=== PATIENT | male | born 1980 | race Two or more races ===

== ENCOUNTER 2021-05-07 19:32 | Inpatient (IN) | payer MEDICAID, OTHER ==
[~2021-05-07] VITALS: Ht 170.2 cm; Wt 78.0 kg
[2021-05-07 20:05] LABS: Basophils # (auto) 0.1 10 ^3/uL (0-0.2); Basophils % (auto) 0.9 % (0.0-2.0); Eosinophils # (auto) 0.1 10 ^3/uL (0-0.8); Eosinophils % (auto) 1.5 % (0.0-7.0); Hematocrit 39.9 % (41.0-53.0); Lymphocytes # (auto) 1.1 10 ^3/uL (0.4-5.4); Mean Corpuscular Hemoglobin 28.9 pg (28.0-32.0); Mean Corpuscular Hgb Conc. 32.6 g/dL (32.0-36.0); Mean Corpuscular Volume 88.5 fL (80.0-100.0); Monocytes # (auto) 0.4 10 ^3/uL (0-1.3); Monocytes % (auto) 7.2 % (0.0-12.0); Neutrophils # (auto) 3.7 10 ^3/uL (1.6-8.6); Neutrophils % (auto) 69.4 % (37.0-80.0); Nucleated Red Blood Cells % 0.1 %; Red Cell Distribution Width 16.1 % (11.8-14.3); White Blood Cell 5.3 10^3/uL (4.4-10.8)
[2021-05-07 20:19] LABS: INR 1.08 (0.9-1.15); Partial Thromboplastin Time 25.7 sec (23.6-33.0)
[2021-05-07 20:23] LABS: Albumin 2.2 g/dL (3.4-5.0); Calcium 7.6 mg/dL (8.5-10.1); Magnesium 2.2 mg/dL (1.6-2.6)
[2021-05-07 20:32] LABS: Bilirubin, Total 0.8 mg/dL (0.2-1.0); Total Protein 6.1 g/dL (6.4-8.2)
[2021-05-07 20:50] LABS: BUN/Creatinine Ratio 16.6
[2021-05-07 20:53] LABS: Potassium 5.7 mmol/L (3.5-5.1)
[2021-05-07] MEDS ORDERED: FUROSEMIDE 100 MG/10ML VIAL IV ONE (21:45)
[2021-05-07] MEDS ORDERED: InsuLIN REG 1unit/0.01ml Soln (100units/ml) IV ONE (21:45)
[2021-05-07 21:50] LABS: Urine Bacteria NONE SEEN /hpf (None Seen); Urine Blood TRACE /uL (Negative); Urine Specific Gravity 1.016 (1.001-1.035); Urine WBC <1 /hpf (0 - 3)
[2021-05-07 22:05] LABS: Alcohol, Urine < 3.0 mg/dL (0-10); Amphetamine Screen, Urine POSITIVE (NEGATIVE); Barbiturate Scree,Urine NEGATIVE (NEGATIVE); Benzodiazephine Screen, Urine NEGATIVE (NEGATIVE); Cannabinoid Screen, Urine NEGATIVE (NEGATIVE); Cocaine Screen, Urine NEGATIVE (NEGATIVE); Phencyclidine Screen, Urine NEGATIVE (NEGATIVE)
[2021-05-07 22:12] LABS: Opiate Scree,Urine NEGATIVE (NEGATIVE)
[2021-05-07] MEDS ORDERED: ALBUMIN 25% 100 ML IV ONE (22:30)
[2021-05-07] MEDS ORDERED: ACETAMINOPHEN 325 MG TAB PO PRN (22:30)
[2021-05-07] MEDS ORDERED: ONDANSETRON HCL 4 MG/2 ML VIAL IV PRN (22:30)
[2021-05-07] MEDS ORDERED: HYDROcodone-ACET 5/325MG TAB PO PRN (22:30)
[2021-05-07] MEDS ORDERED: SODIUM ZIRCONIUM CYCL 10 GM PAK PO ONE (22:30)
[2021-05-07] MEDS ORDERED: DEXTROSE (50%) 50ML SYRG IV PRN (22:30)
[2021-05-07] MEDS: SODIUM CHLORIDE 0.9% 1,000 ML IV SCH (22:30)
[2021-05-07] MEDS ORDERED: DOCUSATE SOD 100 MG CAP PO PRN (22:30)
[2021-05-07] MEDS: FAMOTIDINE (10MG/ML) 2ML VL IV SCH (23:28)
[2021-05-07] MEDS: TAMSULOSIN HYDROCHLORIDE 0.4 MG CAP PO SCH (23:28)
[2021-05-07] MEDS: HEPARIN SODIUM (PORCINE) 5000 UNITS/ML 1ML VIAL SC SCH (23:30)
[2021-05-07] MEDS: INSULIN LANTUS (GLARGINE) 1 /0.01ml (100units/ml) SC SCH (23:32)
[2021-05-07] MEDS ORDERED: NITROGLYCERIN 0.4 MG SL TAB SL PRN (23:45)
[2021-05-07] MEDS ORDERED: MORPHINE SULFATE INJECTION 2 MG/ML SYRG IV PRN (23:45)
[2021-05-08] MEDS: ACCU-CHEK COMFORT CURVE STRIP VI SCH ×6 (00:07→21:42)
[2021-05-08] MEDS: InsuLIN REG 1unit/0.01ml Soln (100units/ml) SC SCH ×6 (00:08→21:47)
[2021-05-08 02:05] VITALS: BP 123/80
[2021-05-08] MEDS ORDERED: BENA5TAB9 PO (04:23)
[2021-05-08] MEDS ORDERED: ZINC220C10 PO (04:23)
[2021-05-08] MEDS ORDERED: CARV6.2551 PO (04:23)
[2021-05-08] MEDS ORDERED: TAMS0.4C36 PO (04:23)
[2021-05-08] MEDS ORDERED: FURO40TA4 PO (04:23)
[2021-05-08 04:38] VITALS: BP 122/79
[2021-05-08] MEDS: INSULIN LANTUS (GLARGINE) 1 /0.01ml (100units/ml) SC SCH (06:33)
[2021-05-08 08:06] LABS: Basophils # (auto) 0 10 ^3/uL (0-0.2); Basophils % (auto) 0.7 % (0.0-2.0); Eosinophils # (auto) 0.2 10 ^3/uL (0-0.8); Eosinophils % (auto) 2.9 % (0.0-7.0); Hematocrit 39.9 % (41.0-53.0); Hemoglobin 13.5 g/dL (13.5-17.5); Lymphocytes # (auto) 2.7 10 ^3/uL (0.4-5.4); Mean Corpuscular Hemoglobin 28.5 pg (28.0-32.0); Mean Corpuscular Hgb Conc. 33.8 g/dL (32.0-36.0); Mean Corpuscular Volume 84.1 fL (80.0-100.0); Monocytes # (auto) 0.7 10 ^3/uL (0-1.3); Monocytes % (auto) 10.7 % (0.0-12.0); Neutrophils % (auto) 44.7 % (37.0-80.0); Nucleated Red Blood Cells % 0.1 %; Red Blood Cells 4.74 10^6/uL (4.5-5.90); Red Cell Distribution Width 15.8 % (11.8-14.3); White Blood Cell 6.6 10^3/uL (4.4-10.8)
[2021-05-08 08:27] LABS: Albumin 2.6 g/dL (3.4-5.0); Calcium 8.6 mg/dL (8.5-10.1)
[2021-05-08 08:31] LABS: BUN/Creatinine Ratio 17.4; Bilirubin, Total 1.4 mg/dL (0.2-1.0); Total Protein 6.7 g/dL (6.4-8.2)
[2021-05-08 08:38] LABS: Potassium 2.9 mmol/L (3.5-5.1)
[2021-05-08] MEDS: DEXTROSE 10% 1,000 ML IV SCH (08:45)
[2021-05-08] MEDS: POTASSIUM CHL 20MEQ/100ML 100 ML IV SCH ×2 (08:45→11:55)
[2021-05-08 09:00] VITALS: BP 120/74
[2021-05-08] MEDS: HEPARIN SODIUM (PORCINE) 5000 UNITS/ML 1ML VIAL SC SCH ×2 (10:00→21:46)
[2021-05-08] MEDS: FUROSEMIDE 40 MG/4 ML VIAL IV SCH (10:00)
[2021-05-08] MEDS: FAMOTIDINE (10MG/ML) 2ML VL IV SCH ×2 (10:00→21:42)
[2021-05-08 13:00] VITALS: BP 130/97
[2021-05-08] MEDS: SODIUM CHLORIDE 0.9% 1,000 ML IV SCH (15:10)
[2021-05-08 17:00] VITALS: BP 130/94
[2021-05-08] MEDS: TAMSULOSIN HYDROCHLORIDE 0.4 MG CAP PO SCH (18:22)
[2021-05-08] MEDS: metroNIDAZOLE 500MG/100ML 100 ML IV SCH (18:22)
[2021-05-08 22:00] VITALS: BP 121/89
[2021-05-09] MEDS: InsuLIN REG 1unit/0.01ml Soln (100units/ml) SC SCH ×3 (00:08→08:41)
[2021-05-09] MEDS: ACCU-CHEK COMFORT CURVE STRIP VI SCH ×3 (00:14→08:30)
[2021-05-09] MEDS: metroNIDAZOLE 500MG/100ML 100 ML IV SCH ×2 (03:44→09:43)
[2021-05-09 05:00] VITALS: BP 123/81
[2021-05-09] MEDS: DEXTROSE 10% 1,000 ML IV SCH ×2 (07:00→11:25)
[2021-05-09] MEDS: SODIUM CHLORIDE 0.9% 1,000 ML IV SCH ×2 (07:50→13:34)
[2021-05-09 08:30] VITALS: BP 130/99
[2021-05-09 09:00] VITALS: BP 129/91
[2021-05-09] MEDS: HEPARIN SODIUM (PORCINE) 5000 UNITS/ML 1ML VIAL SC SCH (10:00)
[2021-05-09] MEDS: FAMOTIDINE (10MG/ML) 2ML VL IV SCH (10:00)
[2021-05-09] MEDS: FUROSEMIDE 40 MG/4 ML VIAL IV SCH (10:00)
== END 2021-05-09 11:30 | disposition left against medical advice (07) | DRG 133 ==
LOC: EDBD 19:32 → ER 19:35 → TELE 23:44 → TELE-CENTR 05-08 02:00
PROVIDERS: ADMIT Nurse Practitioner Family; ATTEND Internal Medicine
DX: J96.01 Acute respiratory failure with hypoxia (principal); N17.0 Acute kidney failure with tubular necrosis; E11.00 Type 2 diabetes mellitus with hyperosmolarity without nonketotic hyperglycemic-hyperosmolar coma (NKHHC); I50.23 Acute on chronic systolic (congestive) heart failure; J18.9 Pneumonia, unspecified organism; I42.7 Cardiomyopathy due to drug and external agent; I13.0 Hypertensive heart and chronic kidney disease with heart failure and stage 1 through stage 4 chronic kidney disease, or unspecified chronic kidney disease; E11.21 Type 2 diabetes mellitus with diabetic nephropathy; R19.7 Diarrhea, unspecified; Z20.822 Contact with and (suspected) exposure to COVID-19; E11.65 Type 2 diabetes mellitus with hyperglycemia; N18.30 Chronic kidney disease, stage 3 unspecified; E87.5 Hyperkalemia; E11.22 Type 2 diabetes mellitus with diabetic chronic kidney disease; E87.6 Hypokalemia; N40.0 Benign prostatic hyperplasia without lower urinary tract symptoms; Z53.29 Procedure and treatment not carried out because of patient's decision for other reasons; Z91.14 Patient's other noncompliance with medication regimen; Z91.19 Patient's noncompliance with other medical treatment and regimen; Z79.4 Long term (current) use of insulin; Z79.899 Other long term (current) drug therapy
CPT/HCPCS: 36415; 71045; 78582; 80053; 80307; 81001; 82010; 82962; 83036; 83735; 83880; 84132; 84484; 85025; 85379; 85610; 85730; 93005; 93306; 96365; 96375; 99291; G0378; J1815; J3480; J3490; P9047